=== PATIENT | male | born 1955 | race Caucasian/White ===

== ENCOUNTER 2017-06-14 11:49 | Emergency (ER) | payer MEDICAID ==
[~2017-06-14 11:49] MED LIST: CLON-352 PO; METH750T2 PO; MIRT15TA2 OR; PRED5TAB; TRAM50TA PO
[2017-06-14 11:52] VITALS: BP 131/80; PULSE 111; RESP 16; TEMP 98.4; O2SAT 96
--- NOTE | 2017-06-14 11:55 | PD ---
Physical Exam Time Seen by Provider: 11:52 Narrative 61yo M c/o lower right back pain for "a long zohaib." Has sciatic nerve problem x 5 years. Pain worse today. Denies current IV drug use, cancer, fevers Hx IVD use about 3 years ago. Ambulatory in triage w/ cane. Patient seen in triage. VS reviewed. Patient awaiting bed placement. Data Data Last Documented VS Vital Signs Date Time Temp Pulse Resp B/P Pulse Ox O2 Delivery O2 Flow Rate FiO2 06/14/17 11:52 98.4 111 16 131/80 96 MDM Supervised Visit with URVASHI: No Veronica Khan Jun 14, 2017 11:55 Veronica Khan Jun 14, 2017 11:55
[2017-06-14 16:35] VITALS: BP 120/79; PULSE 89; RESP 16; O2SAT 95
[2017-06-14] MEDS ORDERED: DEXAMETHASONE SOD PHOS 20 MG/5 ML VIAL IM ONE (17:15)
[2017-06-14] MEDS ORDERED: KETOROLAC TROMETHAMINE 60 MG/2 ML (IM) VIAL IM ONE (17:15)
--- NOTE | 2017-06-14 17:33 | PD ---
HPI Chief Complaint: Back/ Neck Pain or Injury Time Seen by Provider: 17:00 Travel History International Travel<30 days: No Contact w/Intl Traveler<30days: No Traveled to known affect area: No History of Present Illness HPI Patient's 61-year-old male presenting to the emergency department for evaluation of low back pain. Patient states the pain radiates down the back of his right leg worse than the left. He states it's worse today than it normally is. He reports pain being a 10 out of 10, he denies any bladder or bowel incontinence, denies any saddle paresthesia. He states he has weakness in his legs. PFSH Past Medical History Blood Disorders: No Depression: Yes (DUE TO HOMELESS AND HAVING NO JOB) Cancer: No Cardiovascular Problems: No High Cholesterol: Yes Diabetes: No Diminished Hearing: No Endocrine: No Gastrointestinal Disorders: No Genitourinary: No Hepatitis: Yes (HX C) Hiatal Hernia: No Hypertension: Yes Immune Disorder: No Musculoskeletal: Yes (RIGHT FACIAL FXS, R/A BACK AND NECK, SCIATIC NERVE DAMAGE ) Psychiatric: Yes (BIPOLAR) Immunizations Current: Yes Thyroid Disease: No Past Surgical History Eye Surgery: Yes (LENS IN RIGHT EYE) Thoracic Surgery: Yes (LEFT LOBECTOMY ) Other Surgery: Yes (REATTACHED L INDEX FINGER) Social History Alcohol Use: No (QUIT ALMOST 2 YEARS) Tobacco Use: Yes (1PPD) Substance Use: No (OCCASIONAL COCAINE AND THC) Allergies-Medications (Allergen,Severity, Reaction): Coded Allergies: Horse Serum Proteins (Verified Allergy, Severe, 01/02/15) Bee Sting (Verified Allergy, Mild, BREATHING DIFFICULTIES, 01/02/15) Uncoded Allergies: TETNUS (Allergy, Severe, RASH, 03/09/12) Reported Meds & Prescriptions Reported Meds & Active Scripts Active Reported Proair Hfa 8.5 GM Inh (Albuterol Sulfate) 90 Mcg/Act Aer 2 Puff INH Q4-6H PRN 108 mcg/actuation Buspirone (Buspirone HCl) 10 Mg Tab 10 Mg PO TID Quetiapine (Quetiapine Fumarate) 100 Mg Tab 100 Mg PO HS Trazodone (Trazodone HCl) 100 Mg Tablet 100 Mg PO HS Diclofenac Sodium DR (Diclofenac Sodium) 75 Mg Tabdr 75 Mg PO BID Clonidine (Clonidine HCl) 0.1 Mg Tab 0.1 Mg PO BID Atorvastatin (Atorvastatin Calcium) 20 Mg Tab 20 Mg PO HS Methocarbamol 750 Mg Tab 750 Mg PO TID Review of Systems Except as stated in HPI: all other systems reviewed are Neg Musculoskeletal: Positive: Myalgias, Pain Neurologic: Positive: Weakness Physical Exam Narrative GENERAL: Thin, well-developed, alert male. Resting comfortably in no acute distress. SKIN: Warm and dry. HEAD: Atraumatic. Normocephalic. EYES: Pupils equal and round. No scleral icterus. No injection or drainage. ENT: No nasal bleeding or discharge. Mucous membranes pink and moist. NECK: Trachea midline. No JVD. CARDIOVASCULAR: Regular rate and rhythm. RESPIRATORY: No accessory muscle use. Clear to auscultation. Breath sounds equal bilaterally. GASTROINTESTINAL: Abdomen soft, non-tender, nondistended. Hepatic and splenic margins not palpable. MUSCULOSKELETAL: Extremities without clubbing, cyanosis, or edema. No obvious deformities. NEUROLOGICAL: Awake and alert. No obvious cranial nerve deficits. Weakness with flexion and extension of feet R>L. Normal speech. Tenderness to palpation on lumbar spine. PSYCHIATRIC: Appropriate mood and affect; insight and judgment normal. Data Data Last Documented VS Vital Signs Date Time Temp Pulse Resp B/P Pulse Ox O2 Delivery O2 Flow Rate FiO2 06/14/17 16:35 89 16 120/79 95 06/14/17 11:52 98.4 Orders Ketorolac Inj (Toradol Inj) (06/14/17 17:15) Dexamethasone Inj (Decadron Inj) (06/14/17 17:15) Mri T Spine W/O Contrast (06/14/17 ) Mri L Spine W/O Contrast (06/14/17 ) MDM Medical Decision Making Medical Screen Exam Complete: Yes Emergency Medical Condition: Yes Medical Record Reviewed: Yes Interpretation(s) Vital Signs Date Time Temp Pulse Resp B/P Pulse Ox O2 Delivery O2 Flow Rate FiO2 06/14/17 16:35 89 16 120/79 95 06/14/17 11:52 98.4 111 16 131/80 96 Differential Diagnosis DDD vs stenosis vs cord compression vs radiculopathy vs other Narrative Course Patient is a 61-year-old male presenting to emergency room for evaluation of low back pain. Patient had any recent injury or trauma. He does report the pain is worse today than it has been. His vital signs are stable, on exam patient was noted to have weakness in his feet bilaterally worse on the right than the left. For this reason an MRI of the lumbar and thoracic spine were ordered. 1999-MRI stated that MRI machine is down and is currently being worked on. 2019- Went to advise patient that MRI machine was down and he was not in his room and his belongings were gone as well. Diagnosis Primary Impression: Left against medical advice Disposition: 07 AGAINST MEDICAL ADVICE Bella Paul Jun 14, 2017 17:33
[2017-06-14] MEDS ORDERED: DICL75TA PO (19:48)
[2017-06-14] MEDS ORDERED: TRAZ100T6 PO (19:48)
[2017-06-14] MEDS ORDERED: METH750T PO (19:48)
[2017-06-14] MEDS ORDERED: QUET1TAB8 PO (19:48)
[2017-06-14] MEDS ORDERED: BUSP10TA PO (19:48)
[2017-06-14] MEDS ORDERED: ALBUAER3 INH (19:48)
[2017-06-14] MEDS ORDERED: ATOR20TA15 PO (19:48)
[2017-06-14] MEDS ORDERED: CLON0.1T PO (19:48)
== END 2017-06-14 20:32 | disposition left against medical advice (07) ==
LOC: NEPD 11:49
DX: M54.5 Low back pain (principal); Z53.21 Procedure and treatment not carried out due to patient leaving prior to being seen by health care provider; F17.210 Nicotine dependence, cigarettes, uncomplicated; I10 Essential (primary) hypertension; E78.00 Pure hypercholesterolemia, unspecified
CPT/HCPCS: 96372; 99284; J1100; J1885